=== PATIENT | male | born 1940 | race Caucasian/White ===

== ENCOUNTER 2017-08-16 09:47 | Emergency (ER) | payer MEDICARE, BC ==
[~2017-08-16] VITALS: Ht 180.3 cm; Wt 86.1 kg
[2017-08-16 10:02] VITALS: BP 139/78
[2017-08-16] MEDS ORDERED: AZIT-63 PO (11:18)
== END 2017-08-16 11:26 | disposition home or self-care (01) ==
LOC: ER 09:48
DX: J06.9 Acute upper respiratory infection, unspecified (principal); I25.10 Atherosclerotic heart disease of native coronary artery without angina pectoris; E78.00 Pure hypercholesterolemia, unspecified; I10 Essential (primary) hypertension; K21.9 Gastro-esophageal reflux disease without esophagitis
CPT/HCPCS: 99283

== ENCOUNTER 2017-11-02 11:05 | Inpatient (IN) | payer MEDICARE, BC ==
[~2017-11-02] VITALS: Ht 180.3 cm; Wt 81.0 kg
[2017-11-02] VITALS (10 sets, daily range): BP systolic 112–142; BP diastolic 63–80
[2017-11-02 11:44] LABS: BASOPHILS # (AUTO) 0.1 X10'3 (0-0.2); BASOPHILS % (AUTO) 0.9 % (0-1); EOSINOPHILS # (AUTO) 0.4 X10'3 (0-0.9); EOSINOPHILS % (AUTO) 7.6 % (0-6); HEMATOCRIT 37.9 % (42.0-52.0); HEMOGLOBIN 12.8 g/dl (14.0-17.9); LYMPHOCYTES # (AUTO) 2.1 X10'3 (1.1-4.8); LYMPHOCYTES % (AUTO) 38.5 % (21-51); MEAN CORPUSCULAR HEMOGLOBIN 32.9 PG (27.0-31.0); MEAN CORPUSCULAR HGB CONC 33.7 % (33.0-36.5); MEAN CORPUSCULAR VOLUME 97.6 FL (78-98); MEAN PLATELET VOLUME 8.6 FL (7.4-10.4); MONOCYTES # (AUTO) 0.4 X10'3 (0-0.9); NEUTROPHILS # (AUTO) 2.4 X10'3 (1.8-7.7); PLATELET COUNT 180 X10'3 (140-440); RED BLOOD COUNT 3.88 X10'6 (4.70-6.10); RED CELL DISTRIBUTION WIDTH 12.6 % (11.5-14.5); WHITE BLOOD COUNT 5.4 X10'3 (4.5-11.0)
[2017-11-02 12:01] LABS: ALANINE AMINOTRANSFERASE 48 U/L (12-78); ALBUMIN 3.9 G/DL (3.4-5.0); ALBUMIN/GLOBULIN RATIO 1.2 (1.1-1.5); ALKALINE PHOSPHATASE 60 IU/L (46-116); ANION GAP 7 (8-16); ASPARTATE AMINO TRANSFERASE 31 U/L (10-37); BILIRUBIN,TOTAL 0.5 MG/DL (0.1-1.0); BLOOD UREA NITROGEN 24 MG/DL (7-18); BUN/CREATININE RATIO 26.7 (5.4-32.0); CALCIUM 9.6 MG/DL (8.5-10.1); CHLORIDE 102 MMOL/L (99-107); GLUCOSE 99 MG/DL (70-104); SODIUM 139 MMOL/L (135-145); TOTAL CARBON DIOXIDE 30.1 MMOL/L (24-32); TOTAL PROTEIN 7.1 G/DL (6.4-8.2); eGFR 82 ML/MIN
[2017-11-02 12:05] LABS: PARTIAL THROMBOPLASTIN TIME 23 SECONDS (22-32); PROTHROMBIN TIME 10.8 SECONDS (9.0-12.0)
[2017-11-02] MEDS ORDERED: ondansetron/PF 4mg/2ml inj IV ONE (12:20)
[2017-11-02] MEDS ORDERED: PANTOPRAZOLE IV ONE (12:50)
[2017-11-02] MEDS ORDERED: pantoprazole IV 80 MG in normal saline 100ml IV soln 100 ML IV ONE (12:50)
[2017-11-02] MEDS ORDERED: NORMAL SALINE IV ONE (12:50)
[2017-11-02 12:52] LABS: CLARITY,URINE SLIGHTLY CLOUDY (Clear); COLOR,URINE YELLOW (Yellow); GLUCOSE, URINE NEGATIVE (Neg); KETONES,URINE NEGATIVE (Neg); LEUKOCYTE ESTERASE ,URINE NEGATIVE (Neg); NITRITES, URINE NEGATIVE (Neg); OCCULT BLOOD,URINE NEGATIVE (Neg); PH,URINE 7.5 (4.8-8.0); PROTEIN,URINE NEGATIVE (Neg); UROBILINOGEN,URINE 0.2 E.U/dL (0.2-1.0)
[2017-11-02 12:53] LABS: UA COLLECTION TYPE CLN CATCH MIDSTREAM
[2017-11-02 13:00] LABS: SQUAMOUS EPITHELIAL CELL,UR FEW /LPF (FEW)
[2017-11-02 13:01] LABS: MUCUS STRANDS FEW /LPF (Neg)
[2017-11-02 13:02] LABS: BACTERIA,URINE NONE SEEN /HPF (Neg); RBC,URINE 0-2 /HPF (0-2); WBC,URINE 0-4 /HPF (0-4)
[2017-11-02] MEDS ORDERED: ondansetron/PF 4mg/2ml inj IV PRN (13:15)
[2017-11-02] MEDS ORDERED: diphenhydrAMINE 50 mg/ml inj IV PRN (13:15)
[2017-11-02] MEDS ORDERED: magnesium Cl slow-release 64mg tablet PO PRN (13:15)
[2017-11-02] MEDS ORDERED: magnesium 4gm in 100ml NS 100 ML IV PRN (13:15)
[2017-11-02] MEDS ORDERED: morphine 4 MG/ML inj SYRINge IV PRN (13:15)
[2017-11-02] MEDS ORDERED: potassium Cl 40MEQ/NS 500ml 500 ML IV PRN ×2 (13:15)
[2017-11-02] MEDS ORDERED: potassium Cl 20 mEq SR tablet PO PRN ×2 (13:15)
[2017-11-02] MEDS ORDERED: mag hydrox/Alum hydrox/simeth 30ml oral suspension PO PRN (13:15)
[2017-11-02] MEDS ORDERED: magnesium 2GM in 50ml NS 50 ML IV PRN (13:15)
[2017-11-02] MEDS: K and/or MAG REPLACEMENT MC SCH (13:15)
[2017-11-02] MEDS ORDERED: magnesium hydroxide 30ml (MOM) UD suspension PO PRN (13:15)
[2017-11-02] MEDS: normal saline 1000ml 1,000 ML IV SCH ×2 (14:12→23:11)
[2017-11-02] MEDS ORDERED: SIMV20TA5 PO (14:25)
[2017-11-02] MEDS ORDERED: ASPI-1265 PO (14:25)
[2017-11-02] MEDS ORDERED: HYDR25TA4 PO (14:25)
[2017-11-02] MEDS ORDERED: MELO-102 PO (14:25)
[2017-11-02] MEDS ORDERED: MULT-955 PO (14:26)
[2017-11-02] MEDS ORDERED: [UNRECOGNIZED DRUG - OTHER] (14:28)
[2017-11-02] MEDS ORDERED: VITA1TAB31 PO (14:29)
[2017-11-02] MEDS: pantoprazole 40MG/NS 100ML BAG 100 ML IV SCH ×3 (14:45→21:00)
[2017-11-02] MEDS ORDERED: pantoprazole 40 MG vial IV ONE (14:45)
[2017-11-02 14:54] LABS: HEMOGLOBIN 11.9 g/dl (14.0-17.9); MEAN CORPUSCULAR HEMOGLOBIN 32.8 PG (27.0-31.0); MEAN CORPUSCULAR HGB CONC 34.1 % (33.0-36.5); MEAN CORPUSCULAR VOLUME 96.4 FL (78-98); MEAN PLATELET VOLUME 8.4 FL (7.4-10.4); PLATELET COUNT 164 X10'3 (140-440); RED BLOOD COUNT 3.63 X10'6 (4.70-6.10); RED CELL DISTRIBUTION WIDTH 13.1 % (11.5-14.5); WHITE BLOOD COUNT 5.4 X10'3 (4.5-11.0)
[2017-11-02 15:03] LABS: OCCULT BLOOD STOOL POSITIVE (Neg)
[2017-11-02] MEDS ORDERED: fentaNYL/PF 50MCG/1 ML 2ML syringe IV PRN (18:30)
[2017-11-02] MEDS ORDERED: normal saline 1000ml 1,000 ML IV SCH (18:30)
[2017-11-02] MEDS ORDERED: simethicone 40mg/0.6ml oral drops 30ml MC ONE (18:30)
[2017-11-02] MEDS ORDERED: MIDAZolam 5mg/5ml vial IV PRN (18:30)
[2017-11-02] MEDS ORDERED: LIDOcaine Viscous 15ml cup PO ONE (18:30)
[2017-11-02] MEDS ORDERED: fentaNYL/PF 50MCG/1 ML 2ML syringe ONE (19:22)
[2017-11-02] MEDS ORDERED: LIDOcaine Viscous 15ml cup ONE (19:23)
[2017-11-02] MEDS ORDERED: MIDAZolam 5mg/5ml vial ONE (19:23)
[2017-11-02 20:23] LABS: HEMATOCRIT 34.4 % (42.0-52.0); HEMOGLOBIN 11.6 g/dl (14.0-17.9); MEAN CORPUSCULAR HEMOGLOBIN 32.8 PG (27.0-31.0); MEAN CORPUSCULAR HGB CONC 33.6 % (33.0-36.5); MEAN CORPUSCULAR VOLUME 97.7 FL (78-98); MEAN PLATELET VOLUME 8.5 FL (7.4-10.4); PLATELET COUNT 157 X10'3 (140-440); RED BLOOD COUNT 3.52 X10'6 (4.70-6.10); WHITE BLOOD COUNT 5.4 X10'3 (4.5-11.0)
[2017-11-02] MEDS: temazepam 15mg capsule PO PRN (22:19)
[2017-11-03] VITALS: BP 128/57
[2017-11-03] MEDS: pantoprazole 40MG/NS 100ML BAG 100 ML IV SCH ×2 (00:50→06:03)
[2017-11-03] MEDS: normal saline 1000ml 1,000 ML IV SCH ×2 (01:31→19:24)
[2017-11-03 01:50] LABS: BASOPHILS % (AUTO) 0.7 % (0-1); EOSINOPHILS # (AUTO) 0.5 X10'3 (0-0.9); EOSINOPHILS % (AUTO) 9.3 % (0-6); HEMATOCRIT 33.5 % (42.0-52.0); HEMOGLOBIN 11.4 g/dl (14.0-17.9); LYMPHOCYTES # (AUTO) 2.2 X10'3 (1.1-4.8); LYMPHOCYTES % (AUTO) 40.2 % (21-51); MEAN CORPUSCULAR HEMOGLOBIN 33.1 PG (27.0-31.0); MEAN CORPUSCULAR VOLUME 97.1 FL (78-98); MEAN PLATELET VOLUME 8.9 FL (7.4-10.4); MONOCYTES # (AUTO) 0.4 X10'3 (0-0.9); MONOCYTES % (AUTO) 6.8 % (2-12); NEUTROPHILS # (AUTO) 2.5 X10'3 (1.8-7.7); PLATELET COUNT 154 X10'3 (140-440); RED BLOOD COUNT 3.45 X10'6 (4.70-6.10); WHITE BLOOD COUNT 5.6 X10'3 (4.5-11.0)
[2017-11-03 01:59] LABS: ALANINE AMINOTRANSFERASE 52 U/L (12-78); ALBUMIN 3.3 G/DL (3.4-5.0); ALBUMIN/GLOBULIN RATIO 1.2 (1.1-1.5); ALKALINE PHOSPHATASE 48 IU/L (46-116); ANION GAP 6 (8-16); ASPARTATE AMINO TRANSFERASE 31 U/L (10-37); BILIRUBIN,TOTAL 0.7 MG/DL (0.1-1.0); BLOOD UREA NITROGEN 19 MG/DL (7-18); BUN/CREATININE RATIO 20.9 (5.4-32.0); CALCIUM 8.6 MG/DL (8.5-10.1); CHLORIDE 108 MMOL/L (99-107); CREATININE 0.91 MG/DL (0.60-1.10); GLUCOSE 98 MG/DL (70-104); MAGNESIUM 2.1 MG/DL (1.5-2.4); PHOSPHORUS 3.1 MG/DL (2.3-4.5); POTASSIUM 4.1 MMOL/L (3.5-5.1); SODIUM 143 MMOL/L (135-145); eGFR 81 ML/MIN
[2017-11-03 07:16] VITALS: BP 130/74
[2017-11-03] MEDS: K and/or MAG REPLACEMENT MC SCH (07:51)
[2017-11-03 08:12] LABS: HEMATOCRIT 32.7 % (42.0-52.0); MEAN CORPUSCULAR HEMOGLOBIN 33.1 PG (27.0-31.0); MEAN CORPUSCULAR HGB CONC 33.7 % (33.0-36.5); MEAN CORPUSCULAR VOLUME 98.2 FL (78-98); MEAN PLATELET VOLUME 9.2 FL (7.4-10.4); PLATELET COUNT 149 X10'3 (140-440); RED BLOOD COUNT 3.33 X10'6 (4.70-6.10); RED CELL DISTRIBUTION WIDTH 12.9 % (11.5-14.5); WHITE BLOOD COUNT 4.5 X10'3 (4.5-11.0)
[2017-11-03 11:00] VITALS: BP 115/63
[2017-11-03 13:16] VITALS: BP 118/60
[2017-11-03 19:00] VITALS: BP 134/77
[2017-11-03] MEDS: temazepam 15mg capsule PO PRN (21:06)
[2017-11-03] MEDS: morphine 4 MG/ML inj SYRINge IV PRN (21:06)
[2017-11-03] MEDS: pantoprazole 40mg Tablet.DR PO SCH (21:07)
[2017-11-04 00:55] VITALS: BP 108/51
[2017-11-04] MEDS: normal saline 1000ml 1,000 ML IV SCH (04:06)
[2017-11-04 05:24] LABS: BASOPHILS % (AUTO) 0.7 % (0-1); EOSINOPHILS # (AUTO) 0.6 X10'3 (0-0.9); EOSINOPHILS % (AUTO) 12.5 % (0-6); HEMATOCRIT 30.6 % (42.0-52.0); HEMOGLOBIN 10.4 g/dl (14.0-17.9); LYMPHOCYTES # (AUTO) 1.6 X10'3 (1.1-4.8); LYMPHOCYTES % (AUTO) 33.6 % (21-51); MEAN CORPUSCULAR HEMOGLOBIN 33.2 PG (27.0-31.0); MEAN CORPUSCULAR HGB CONC 34.1 % (33.0-36.5); MEAN CORPUSCULAR VOLUME 97.3 FL (78-98); MONOCYTES # (AUTO) 0.3 X10'3 (0-0.9); MONOCYTES % (AUTO) 6.6 % (2-12); NEUTROPHILS # (AUTO) 2.3 X10'3 (1.8-7.7); NEUTROPHILS % (AUTO) 46.6 % (42-75); PLATELET COUNT 145 X10'3 (140-440); RED BLOOD COUNT 3.14 X10'6 (4.70-6.10); WHITE BLOOD COUNT 4.9 X10'3 (4.5-11.0)
[2017-11-04 05:37] LABS: ALANINE AMINOTRANSFERASE 48 U/L (12-78); ALBUMIN 2.8 G/DL (3.4-5.0); ALBUMIN/GLOBULIN RATIO 1.1 (1.1-1.5); ALKALINE PHOSPHATASE 50 IU/L (46-116); ANION GAP 7 (8-16); ASPARTATE AMINO TRANSFERASE 37 U/L (10-37); BILIRUBIN,TOTAL 0.4 MG/DL (0.1-1.0); BLOOD UREA NITROGEN 14 MG/DL (7-18); BUN/CREATININE RATIO 15.7 (5.4-32.0); CALCIUM 8.2 MG/DL (8.5-10.1); CHLORIDE 111 MMOL/L (99-107); CREATININE 0.89 MG/DL (0.60-1.10); GLUCOSE 99 MG/DL (70-104); MAGNESIUM 2.2 MG/DL (1.5-2.4); POTASSIUM 3.5 MMOL/L (3.5-5.1); SODIUM 144 MMOL/L (135-145); TOTAL CARBON DIOXIDE 26.2 MMOL/L (24-32); TOTAL PROTEIN 5.4 G/DL (6.4-8.2); eGFR 83 ML/MIN
[2017-11-04] MEDS: K and/or MAG REPLACEMENT MC SCH (06:33)
[2017-11-04] MEDS: pantoprazole 40mg Tablet.DR PO SCH (07:20)
[2017-11-04 08:00] VITALS: BP 125/59
[2017-11-04] MEDS: morphine 4 MG/ML inj SYRINge IV PRN (09:19)
[2017-11-04] MEDS ORDERED: PANT40TA4 PO (10:41)
== END 2017-11-04 11:55 | disposition home or self-care (01) | DRG 379 ==
LOC: ER 11:07 → ED HOLD 13:11 → SUR 3N 18:42
PROVIDERS: ADMIT Family Medicine; ATTEND Family Medicine
PROC: 0DB68ZX Excision of Stomach, Via Natural or Artificial Opening Endoscopic, Diagnostic (ICD-10-PCS; principal; 2017-11-02)
DX: K92.2 Gastrointestinal hemorrhage, unspecified (principal); E78.5 Hyperlipidemia, unspecified; I10 Essential (primary) hypertension; M19.90 Unspecified osteoarthritis, unspecified site; Z80.1 Family history of malignant neoplasm of trachea, bronchus and lung; Z87.891 Personal history of nicotine dependence; Z82.49 Family history of ischemic heart disease and other diseases of the circulatory system; Z83.3 Family history of diabetes mellitus; Z91.030 Bee allergy status
CPT/HCPCS: 36415; 43239; 71045; 80053; 81001; 82272; 83735; 84100; 85025; 85027; 85610; 85730; 86885; 86900; 86901; 87070; 93005; 99285; A4620; C9113; G0500; J2250; J2270; J3010; J7030; J7040

== ENCOUNTER 2018-02-24 07:50 | Outpatient (CLI) | payer MEDICARE, BC ==
[2018-02-24] VITALS (19 sets, daily range): BP systolic 101–148; BP diastolic 64–80
[~2018-02-24 07:50] MED LIST: ASPI-1265 PO; HYDR25TA4 PO; MULT-955 PO; PANT40TA4 PO; SIMV20TA5 PO; VITA1TAB31 PO; [UNRECOGNIZED DRUG - OTHER]
== END 2018-02-24 23:59 | disposition home or self-care (01) ==
LOC: CARD DIAG 07:50
PROVIDERS: ATTEND Internal Medicine Interventional Cardiology
DX: I95.1 Orthostatic hypotension (principal); I10 Essential (primary) hypertension; Z96.651 Presence of right artificial knee joint; Z79.82 Long term (current) use of aspirin; Z87.891 Personal history of nicotine dependence; Z72.89 Other problems related to lifestyle
CPT/HCPCS: 93660